=== PATIENT | male | born 1970 | race Caucasian/White ===

== ENCOUNTER 2021-06-30 13:39 | Outpatient (CLI) | payer OTHER | END 2021-06-30 13:40 | disposition home or self-care (01) | LOC: SCSMRI 13:39 | PROVIDERS: ATTEND Orthopaedic Surgery | DX: M23.92 Unspecified internal derangement of left knee (principal); M70.42 Prepatellar bursitis, left knee ==

== ENCOUNTER 2021-07-28 11:27 | Outpatient (CLI) | payer OTHER ==
[2021-07-28 12:48] LABS: #Basophils 0.1 10x3/uL (0.0-0.2); #Eosinphils 0.2 10x3/uL (0.0-0.5); #Monocytes 1.2 10x3/uL (0.0-1.1); #Neutrophils 6.5 10x3/uL (1.5-8.4); %Basophils 1.1 % (0.0-2.0); %Eosinophils 1.8 % (0.0-6.0); %Lymphocytes 27.6 % (18.0-47.0); %Monocytes 10.8 % (0.0-10.0); %Neutrophils 57.9 % (40.0-75.0); Hemoglobin 15.2 g/dL (13.5-17.5); Mean Corpuscular HGB CONC 33.6 g/dL (32.0-36.0); Mean Corpuscular Hemoglobin 30.8 pg (27.0-33.0); Mean Corpuscular Volume 91.9 fl (81.2-95.1); Mean Platelet Volume 11.8 fl (7.4-10.4); Platelet Count 252 10x3/uL (150-450); RBC Distribution Width 12.9 % (11.5-14.5); Red Blood Cell (RBC) Count 4.93 10x6/uL (4.32-5.72); White Blood Cell (WBC) Count 11.1 10x3/uL (3.5-10.5)
[2021-07-28 18:46] LABS: SARS-CoV-2 PCR by NAA Not Detected (NotDetected)
== END 2021-07-28 11:28 | disposition home or self-care (01) ==
LOC: LABBT 11:27
PROVIDERS: ATTEND Orthopaedic Surgery
DX: Z01.818 Encounter for other preprocedural examination (principal); S83.242A Other tear of medial meniscus, current injury, left knee, initial encounter; Z20.822 Contact with and (suspected) exposure to COVID-19
CPT/HCPCS: 85025; 93005; 93010; U0003; U0005

== ENCOUNTER 2021-07-30 06:42 | Day surgery (SDC) | payer OTHER ==
[2021-07-29 12:53] VITALS: BMI 36.5
[2021-07-30] MEDS ORDERED: PROPOFOL 20 ML ONE (08:40)
[2021-07-30] MEDS ORDERED: fentaNYL Citrate/PF 100 MCG/2 ML SYRINGE ONE (10:55)
[2021-07-30] MEDS ORDERED: CEFAZOLIN 2 GM VIAL ONE (11:00)
[2021-07-30] MEDS ORDERED: Sodium Chloride 0.9% 100 ML ONE (11:00)
[2021-07-30] MEDS ORDERED: Bupivacaine PF 0.5% 30 ML VIAL ONE (11:07)
[2021-07-30] MEDS ORDERED: Lidocaine 2% w/Epinephrine 1:200K 20 ML VIAL ONE (11:07)
[2021-07-30] MEDS ORDERED: Ondansetron PF 4 MG/2 ML Vial ONE (11:07)
[2021-07-30] MEDS ORDERED: PHENYLEPHRINE-NS 100 MCG/ML 10 ML SYRINGE ONE (11:07)
[2021-07-30] MEDS ORDERED: Dexamethasone 20 MG/5 ML VIAL ONE (11:07)
[2021-07-30] MEDS ORDERED: PROPOFOL 200 MG/20 ML VIAL ONE (11:07)
[2021-07-30] MEDS ORDERED: Lidocaine 1% PF 5 ML VIAL ONE (11:07)
[2021-07-30] MEDS ORDERED: Lidocaine 1% w/Epinephrine 1:100K 20 ML VIAL ONE (11:52)
[2021-07-30] MEDS ORDERED: HYDROcodone/Acetaminophen 5/325 mg Tablet ONE (13:26)
== END 2021-07-30 14:20 | disposition home or self-care (01) ==
LOC: SDC 06:42
PROVIDERS: ATTEND Orthopaedic Surgery
PROC: 0SBD4ZZ Excision of Left Knee Joint, Percutaneous Endoscopic Approach (ICD-10-PCS; principal; 2021-07-30)
DX: S83.232A Complex tear of medial meniscus, current injury, left knee, initial encounter (principal); F17.220 Nicotine dependence, chewing tobacco, uncomplicated; F17.290 Nicotine dependence, other tobacco product, uncomplicated; Z91.013 Allergy to seafood; Z91.018 Allergy to other foods; Z91.041 Radiographic dye allergy status
CPT/HCPCS: J1100; J2405; J2704; J3490; S0020

== ENCOUNTER 2021-12-17 07:32 | Outpatient (CLI) | payer OTHER | END 2021-12-17 07:33 | disposition home or self-care (01) | LOC: SCSMRI 07:32 | PROVIDERS: ATTEND Orthopaedic Surgery | DX: Z47.89 Encounter for other orthopedic aftercare (principal); Z98.890 Other specified postprocedural states; S83.232A Complex tear of medial meniscus, current injury, left knee, initial encounter; M62.89 Other specified disorders of muscle ==

== ENCOUNTER 2022-01-14 06:42 | Day surgery (SDC) | payer OTHER ==
[2022-01-13 10:32] VITALS: BMI 38.3
[2022-01-14] MEDS ORDERED: Lidocaine 1% (PF) 30 ML VIAL ONE (08:39)
[2022-01-14] MEDS ORDERED: Bupivacaine PF 0.5% 30 ML VIAL ONE (08:39)
[2022-01-14] MEDS ORDERED: PROPOFOL 20 ML ONE (08:39)
[2022-01-14] MEDS ORDERED: fentaNYL PF 100 MCG/2 ML SYRINGE ONE (09:47)
[2022-01-14] MEDS ORDERED: CEFAZOLIN 2 GM VIAL ONE (09:48)
[2022-01-14] MEDS ORDERED: Sodium Chloride 0.9% 100 ML ONE (09:48)
[2022-01-14] MEDS ORDERED: Ondansetron PF 4 MG/2 ML Vial ONE (09:59)
[2022-01-14] MEDS ORDERED: Dexamethasone 20 MG/5 ML VIAL ONE (09:59)
[2022-01-14] MEDS ORDERED: ePHEDrine 50 MG/ML VIAL ONE (09:59)
[2022-01-14] MEDS ORDERED: Ketorolac Tromethamine 30 MG/ML VIAL ONE (09:59)
[2022-01-14] MEDS ORDERED: PROPOFOL 200 MG/20 ML VIAL ONE (09:59)
[2022-01-14] MEDS ORDERED: FENTANYL 50 MCG/ML 1 ML VIAL ONE ×2 (11:21→11:38)
[2022-01-14] MEDS ORDERED: HYDROcodone/Acetaminophen 5/325 mg Tablet ONE (12:51)
== END 2022-01-14 13:50 | disposition home or self-care (01) ==
LOC: SDC 06:42
PROVIDERS: ATTEND Orthopaedic Surgery
PROC: 0SBD4ZZ Excision of Left Knee Joint, Percutaneous Endoscopic Approach (ICD-10-PCS; principal; 2022-01-14)
DX: S83.232A Complex tear of medial meniscus, current injury, left knee, initial encounter (principal); F17.210 Nicotine dependence, cigarettes, uncomplicated; F17.220 Nicotine dependence, chewing tobacco, uncomplicated; F17.290 Nicotine dependence, other tobacco product, uncomplicated; Z91.013 Allergy to seafood; Z91.018 Allergy to other foods; Z91.041 Radiographic dye allergy status; Z98.890 Other specified postprocedural states; W19.XXXA Unspecified fall, initial encounter
CPT/HCPCS: J1100; J1885; J2001; J2405; J2704; J3010; J3490; S0020